=== PATIENT | female | born 1975 | race Hispanic/Latino ===

== ENCOUNTER 2017-01-23 16:12 | Emergency (ER) | payer OTHER ==
[2017-01-23 17:08] LABS: #Basophils 0.1 thou/uL (0.0-0.2); #Eosinphils 0.7 thou/uL (0.0-0.7); #Lymphocytes 1.9 thou/uL (1.20-3.40); #Monocytes 0.6 thou/uL (0.11-0.59); #Neutrophils 5.1 thou/uL (1.40-6.50); %Basophils 0.9 % (0.0-1.0); %Eosinophils 8.1 % (0.0-10.0); %Lymphocytes 22.3 % (21.0-51.0); Hematocrit 37.5 % (36.0-47.0); Mean Platelet Volume 7.5 fL (7.4-10.4); Red Blood Cell (RBC) Count 4.23 mill/uL (4.20-5.40); White Blood Cell (WBC) Count 8.3 thou/uL (4.8-10.8)
--- NOTE | 2017-01-23 17:13 | CT ---
CT HEAD NONCONTRAST 01/23/17 COMPARISON: 09/23/13 CLINICAL HISTORY: Syncope. FINDINGS: Ventricular system is normal in size. Septum pellucidum and third ventricle are midline. There is mi ld chronic microvascular ischemic disease without intracranial mass effect or midline shift. Scatter ed paranasal sinus mucosal thickening present. IMPRESSION: No acute intracranial hemorrhage or mass effect. POS: [facility]
--- NOTE | 2017-01-23 17:19 | CT ---
CT CERVICAL SPINE WITHOUT CONTRAST 01/23/17 HISTORY: Unwitnessed ground level fall. Hit head. Neck pain with movement. Unknown loss of consciousness. COMPARISON: C-spine CT 09/26/13. FINDINGS: No acute fracture or malalignment. Lung apices are clear. The paraspinal soft tissues are unremarkab le. Extensive dental caries throughout the mouth with numerous periapical lucencies. Mandibular condyles are well aligned. IMPRESSION: 1. No acute fracture or malalignment of the cervical spine. 2. Extensive dental caries and periapical lucencies. 3. Left maxillary mucosal sinus thickening. 4. Moderate atherosclerotic plaque in both carotid bulbs. POS: [facility]
[2017-01-23 17:30] LABS: Bilirubin Negative (Negative); Blood, Urine Trace (Negative); Glucose, Urine (Dipstick) 100 mg/dL (Negative); Ketone, Urine Negative (Negative); Nitrite Negative (Negative); Protein, Urine (Dipstick) 30 mg/dL (Neg-Trace); Urobilinogen 0.2 mg/dL (0.2-1.0)
[2017-01-23 17:32] LABS: ALT (SGPT) 31 U/L (0-55); AST (SGOT) 18 U/L (5-34); Alkaline Phosphatase 124 U/L (40-150); Anion Gap 19 mmol/L (10-20); BUN (Urea Nitrogen) 33 mg/dL (7.0-18.7); Bilirubin, Total 0.2 mg/dL (0.2-1.2); CK (CPK) 95 U/L (29-168); Calc. Creatinine Clearance 0 mL/min (70-130); Calcium 9.4 mg/dL (7.8-10.44); Carbon Dioxide 20 mmol/L (22-29); Chloride 104 mmol/L (98-107); Estimated GFR-MDRD 60; Globulin 3.3 g/dL (2.4-3.5); Protein, Total 6.8 g/dL (6.0-8.3)
[2017-01-23 17:33] LABS: Troponin I Less than 0.010 ng/mL (< 0.028)
[2017-01-23 17:37] LABS: Bacteria/HPF 3+ HPF (None Seen); WBC/HPF 0-3 HPF (0-3)
== END 2017-01-23 17:42 | disposition home or self-care (01) ==
LOC: NAV ERS 16:12
DX: S06.9X1A Unspecified intracranial injury with loss of consciousness of 30 minutes or less, initial encounter (principal); E11.9 Type 2 diabetes mellitus without complications; I25.2 Old myocardial infarction; E03.9 Hypothyroidism, unspecified; E78.5 Hyperlipidemia, unspecified; E78.00 Pure hypercholesterolemia, unspecified; J45.909 Unspecified asthma, uncomplicated; I50.9 Heart failure, unspecified; I42.9 Cardiomyopathy, unspecified; F31.9 Bipolar disorder, unspecified; F20.9 Schizophrenia, unspecified; F17.210 Nicotine dependence, cigarettes, uncomplicated; Z79.82 Long term (current) use of aspirin; Z79.4 Long term (current) use of insulin; Z79.899 Other long term (current) drug therapy; W18.30XA Fall on same level, unspecified, initial encounter
CPT/HCPCS: 36416; 70450; 72125; 80053; 81003; 81015; 82553; 83880; 84484; 85025; 93005